=== PATIENT | female | born 1965 | race Caucasian/White ===

== ENCOUNTER 2023-12-26 07:33 | Emergency (ER) | payer OTHER, SELFPAY ==
[2023-12-26 07:37] VITALS: BP 122/77
--- NOTE | 2023-12-26 08:03 | ED.GENMED ---
History of Present Illness
General
Chief Complaint: Musculo-Skeletal Complaint
Source: patient
Exam Limitations: none
Time Seen by Provider: 12/26/23 07:54
Nursing documentation reviewed up to this point in time: agreed with
History of Present Illness
History of Present Illness:
Patient is a 58 old female who tripped over a ladder yesterday hitting her right forearm right wrist and the lateral. She also hit her left posterior thigh. She denies hitting her head. She complains of small abrasion and bruising to right
forearm and some soreness/tenderness to her left posterior thigh.
Her tetanus is up-to-date. She denies any other injury
Review of Systems
Review of Systems
Allergies reviewed?: Yes
All Other Systems: ROS reviewed and negative except as documented in HPI and ROS
Constitutional: Reports no symptoms; Denies fever, fatigue or chills
Musculoskeletal: Reports other (right forearm pain/bruising and discomfort to left thigh)
Skin: Reports no symptoms
Neurological: Reports no symptoms
Psychiatric: Reports no symptoms
Phy Exam
General Physical Exam
General Presentation: no apparent distress
General age: appears stated age
General Skin: warm and dry
General Habitus: normal
General Mental: alert
General Hydration: appears well hydrated
Neurological Exam
Neurological Exam: alert and oriented x3
Musculoskeletal Exam
Musculoskeletal Exam: other (rue with + small ecchymosis to volar forearm soft tissue tenderness small abrasion no obvious swelling to wrist no bony tenderness to wrist patient reports pain is inside.; + small abrasion school left posterior thigh
with normal inspection no ecchymosis no bony tenderness normal weightbearing)
Skin Exam
Skin Exam: normal color and warm/dry
Psychiatric Exam
Psychiatric Exam: normal mood/affect
Course
Orders/Labs/Results
Orders:
Orders
12/26/23 07:41
Forearm, Right 2 View [CR Forearm - Right 2 View] Urgent
Comment:
Reason For Exam: injury
Vital Signs
Initial and Last Documented VS:
Initial Vital Signs
Temp Pulse Resp BP Pulse Ox
99.7 F 89 16 122/77 98
12/26/23 07:37 12/26/23 07:37 12/26/23 07:37 12/26/23 07:37 12/26/23 07:37
Last Documented Vital Signs
Temp Pulse Resp BP Pulse Ox
99.7 F 89 16 122/77 98
12/26/23 07:37 12/26/23 07:37 12/26/23 07:37 12/26/23 07:37 12/26/23 07:37
MDM/Problems Addressed
Differential Diagnosis Includes:
Not limited to contusion versus fracture
MDM/Problems Addressed:
Symptoms are consistent with contusion will d/c with ice/tylenol
*Pulse Oximetry
Patient hypoxic: no
*Critical Care Note
Total Time (30-74mins, 75-104mins- exclusive of procedures): Not Applicable
ED Attending Note
-
Portions of this chart may have been created with voice recognition software.� Occasional wrong word or��sound alike� substitutions may have occurred due to the inherent limitations of voice recognition software.
Discharge Plan
Departure
Patient Disposition: Home (Routine Discharge)
Date of Disposition: 12/26/23
Time of Disposition: 08:40
Patient with high blood pressure during this ER visit?: No
Condition: Fair
Covid-19: Not Applicable
Discharge Problem:
Contusion
Instructions: Contusion (DC), Using Cold for Pain
Activity Restrictions/Additional Instructions:
There is no obvious fracture on x-ray. As discussed ice the area you may take Motrin or Tylenol. Wash small region of similar twice a day and apply small layer of antibiotic ointment to the area return if any worsening of symptoms or increased
pain swelling redness fever chills.
Interventions
Interventions:
*Risk Screen - Suicide Last Done: 12/26/23 07:37
*General Assessment Last Done: 12/26/23 07:37
*Neglect/Abuse Screening Last Done: 12/26/23 07:37
ED- Fall Risk Assessment Last Done: 12/26/23 08:40
*ED COVID-19 Vaccine History Last Done: 12/26/23 08:40
*Nursing Disposition Last Done: 12/26/23 08:40
Discharge Date and Time
Discharge Date/Time: 12/26/23 08:40
Print Language: CROATIAN
== END 2023-12-26 08:40 | disposition home or self-care (01) ==
LOC: EMR 07:33
PROVIDERS: EMERGENCY PHYSICIAN Emergency Medicine; FAMILY PHYSICIAN Family Medicine
DX: S50.11XA Contusion of right forearm, initial encounter (principal); S50.811A Abrasion of right forearm, initial encounter; W19.XXXA Unspecified fall, initial encounter
CPT/HCPCS: 99283; 73090

== ENCOUNTER 2024-01-21 17:16 | Emergency (ER) | payer OTHER, SELFPAY ==
[2024-01-21 17:22] VITALS: BP 111/67
[2024-01-21 17:45] LABS: % Basophils 0.8 % (0-2); % Immature Granulocytes 0.4 % (0-0.5); % Lymphocytes 19.5 % (20.5-51.1); % Monocytes 4.7 % (1.7-9.3); % Neutrophils 73.6 % (42.2-75.2); Absolute Basophils 0.1 10^3/uL (0-0.2); Absolute Eosinophils 0.1 10^3/uL (0-0.7); Absolute Lymphocytes 1.6 10^3/uL (1.2-3.4); Absolute Monocytes 0.4 10^3/uL (0.1-0.6); Absolute Neutrophils 6.1 10^3/uL (1.4-6.5); Hematocrit 31.3 % (37.0-47.0); Hemoglobin 10.6 g/dL (12.0-16.0); Mean Corp Hgb Conc. 33.9 g/dL (33.0-37.0); Mean Corpuscular Hgb 29.4 pg (27.0-31.0); Mean Corpuscular Volume 86.9 fL (81.0-99.0); Mean Platelet Volume 9.3 fL (7.4-10.4); Nucleated Red Blood Cells % 0 %; Platelet Count 258 10^3/uL (130-400); Red Cell Dist. Width 13.3 % (11.5-14.5); White Blood Cell Count 8.3 10^3/uL (4.8-10.8)
[2024-01-21 18:05] LABS: ALT (SGPT) 15 U/L (0-35); AST (SGOT) 27 U/L (14-36); Albumin 4.3 g/dl (3.5-5.0); Alkaline Phosphatase 64 U/L (38-126); Blood Urea Nitrogen 15 mg/dl (7-17); Calcium 9.4 mg/dl (8.4-10.2); Carbon Dioxide 26 mmol/L (22-30); Chloride 104 mmol/L (98-107); Glucose 117 mg/dl (70-99); Lipase 88 U/L (23-300); Potassium 4.4 mmol/L (3.5-5.1); Sodium 136 mmol/L (135-145); Total Bilirubin 0.4 mg/dl (0.2-1.3); Total Protein 6.8 g/dl (6.3-8.2); eGFR > 60.00
[2024-01-21 18:16] LABS: HCG, Serum Qualitative Screen Negative
--- NOTE | 2024-01-21 19:11 | ED.GENMED ---
History of Present Illness
<Jazmin Kearney MD, Resident - Last Filed: 01/21/24 22:10>
General
Chief Complaint: Abdominal Pain
Time Seen by Provider: 01/21/24 18:45
History of Present Illness
History of Present Illness:
The patient was admitted to ER with upper abdominal pain which started yesterday and gotten worse today. She started to feel nauseous and distended today. This morning she had her bowel movement and is not sure if she had any blood, mucus or color
change with stool. The patient denies any past abdominal surgery. She has denies SOB and chest pain. She has PMH of psoriasis arthritis and HLD.
If applicable-neuro sx onset
Date of onset of symptoms: 01/21/24
Past History
<Jaylon Pollard MD - Last Filed: 01/21/24 22:46>
Past History
ED Past Medical History: Hypercholesterolemia and Other (Psoriatic arthritis)
ED Past Surgical History: Orthopedic
Review of Systems
<Jazmin Kearney MD, Resident - Last Filed: 01/21/24 22:10>
Review of Systems
EENT: Reports no symptoms
Respiratory: Reports no symptoms
Cardiac: Reports no symptoms
ABD/GI: Reports pain and other (mid abdominal and RU abdominal tenderness to palpation. No rebound or guarding. )
: Reports no symptoms
Musculoskeletal: Reports no symptoms
Skin: Reports other (Patches on elbow due psoriasis )
Neurological: Reports no symptoms
<Jaylon Pollard MD - Last Filed: 01/21/24 22:46>
Review of Systems
All Other Systems: Not applicable
Constitutional: Denies fever
Phy Exam
<Jazmin Kearney MD, Resident - Last Filed: 01/21/24 22:10>
General Physical Exam
General Presentation: well appearing and no apparent distress
General age: appears stated age
General Skin: warm
General Habitus: normal
General Mental: alert
General Hydration: appears well hydrated
Eye Exam
Eye Exam: EOMI and conjunctiva normal
Cardiovascular Exam
Cardiovascular Exam: regular rate/rhythm, no edema, no gallop and no JVD
Pulmonary Exam
Pulmonary Exam: lungs clear, no respiratory distress, no rales, no crackles, no rhonchi, no stridor and no wheezing
Gastrointestinal Exam
Gastrointestinal Exam: distended, tender and other (tenderness on mid abdominal RU abdominal area to palpation. No rebound or guarding)
Palpation: right upper quadrant: Mild tenderness
Neurological Exam
Neurological Exam: alert, oriented x3, CN II-XII intact, no motor deficits and no sensory deficits
Course
<Jazmin Kearney MD, Resident - Last Filed: 01/21/24 22:10>
Orders/Labs/Results
Orders:
Orders
01/21/24 17:29
Electrocardiogram (*1) Urgent
Reason for Study: Abdominal Pain
EKG- Treatment ONCE
Test Result ONCE
01/21/24 17:41
Complete Blood Count/With Diff Urgent
Comprehensive Metabolic Panel Urgent
HCG, Serum Qualitative Screen Urgent
Lipase Urgent
01/21/24 19:09
Iohexol [Omnipaque] See Protocol PO NOW STA
01/21/24 19:10
CT Abd/pel W Iv And Oral Contr Urgent
Comment:
Reason For Exam: Upper abdominal pain/distention
0.9% Sodium Chloride 1000 ml [Nss] 1,000 ml IV BOLUS
US Abdomen Complete/Upper Urgent
Comment:
Reason For Exam: Upper abdominal pain
01/21/24 19:28
Troponin I Urgent
01/21/24 22:41
Pantoprazole [Protonix IV] 40 mg IV NOW STA
Abnormal Lab Results
01/21/24
17:41
RBC 3.60 L 10^6/uL
(4.20-5.40)
Hgb 10.6 L g/dL
(12.0-16.0)
Hct 31.3 L %
(37.0-47.0)
Lymphocytes % 19.5 L %
(20.5-51.1)
Glucose 117 H mg/dl
(70-99)
01/21/24 17:41
01/21/24 17:41
Vital Signs
Initial and Last Documented VS:
Initial Vital Signs
Temp Pulse Resp BP Pulse Ox
98.4 F 91 18 111/67 98
01/21/24 17:22 01/21/24 17:22 01/21/24 17:22 01/21/24 17:22 01/21/24 17:22
Last Documented Vital Signs
Temp Pulse Resp BP Pulse Ox
98.4 F 91 18 111/67 98
01/21/24 17:22 01/21/24 17:22 01/21/24 17:22 01/21/24 17:22 01/21/24 17:22
<Jaylon Pollard MD - Last Filed: 01/21/24 22:46>
Orders/Labs/Results
Orders:
Orders
01/21/24 17:29
Electrocardiogram (*1) Urgent
Reason for Study: Abdominal Pain
EKG- Treatment ONCE
Test Result ONCE
01/21/24 17:41
Complete Blood Count/With Diff Urgent
Comprehensive Metabolic Panel Urgent
HCG, Serum Qualitative Screen Urgent
Lipase Urgent
01/21/24 19:09
Iohexol [Omnipaque] See Protocol PO NOW STA
01/21/24 19:10
CT Abd/pel W Iv And Oral Contr Urgent
Comment:
Reason For Exam: Upper abdominal pain/distention
0.9% Sodium Chloride 1000 ml [Nss] 1,000 ml IV BOLUS
US Abdomen Complete/Upper Urgent
Comment:
Reason For Exam: Upper abdominal pain
01/21/24 19:28
Troponin I Urgent
01/21/24 22:41
Pantoprazole [Protonix IV] 40 mg IV NOW STA
Abnormal Lab Results
01/21/24
17:41
RBC 3.60 L 10^6/uL
(4.20-5.40)
Hgb 10.6 L g/dL
(12.0-16.0)
Hct 31.3 L %
(37.0-47.0)
Lymphocytes % 19.5 L %
(20.5-51.1)
Glucose 117 H mg/dl
(70-99)
01/21/24 17:41
01/21/24 17:41
Vital Signs
Initial and Last Documented VS:
Initial Vital Signs
Temp Pulse Resp BP Pulse Ox
98.4 F 91 18 111/67 98
01/21/24 17:22 01/21/24 17:22 01/21/24 17:22 01/21/24 17:22 01/21/24 17:22
Last Documented Vital Signs
Temp Pulse Resp BP Pulse Ox
98.4 F 91 18 111/67 98
01/21/24 17:22 01/21/24 17:22 01/21/24 17:22 01/21/24 17:22 01/21/24 17:22
<Jazmin Kearney MD, Resident - Last Filed: 01/21/24 22:10>
*Critical Care Note
Total Time (30-74mins, 75-104mins- exclusive of procedures): Not Applicable
<Jaylon Pollard MD - Last Filed: 01/21/24 22:46>
*Radiology
Radiology exam reviewed: radiology read reviewed (Ultrasound shows normal gallbladder some Pelvicalceal dilatation asymmetrically. CT shows symmetrical prominence of the renal pelvis no evidence of obstruction thickening of the duodenal wall.
Suggestive of duodenitis atherosclerotic changes)
*Pulse Oximetry
Patient hypoxic: no
*EKG
Interpreted by ED Provider?: Yes
Interpretation: normal
Comparison EKG: no comparison EKG present
Heart Rate: 76
Rate: normal
Rhythm: sinus
[place]: normal axis
Interval: normal interval
QRS Pattern: right bundle branch block (inc)
Ischemia: no ischemia
<Jazmin Kearney MD, Resident - Last Filed: 01/21/24 22:10>
Comment
Comment:
The patient has mild tenderness on her RU and mid abdominal area. The patient might have gallbladder problems, gastroenteritis,bowel obstruction, diverticulosis or inferior AK. EKG did not show any abnormality, troponin was ordered. Abdominal USG
was ordered to check gallbladder and CAT scan was ordered to check possible abdominal problems.
<Jaylon Pollard MD - Last Filed: 01/21/24 22:46>
Update Note
Update Note:
Patient medically stable and nontoxic. All consistent with a duodenitis. Symptoms are all upper abdomen. Nothing to support urinary issue. Protonix and follow-up.
ED Attending Note
<Jazmin Kearney MD, Resident - Last Filed: 01/21/24 22:10>
-
Portions of this chart may have been created with voice recognition software.� Occasional wrong word or��sound alike� substitutions may have occurred due to the inherent limitations of voice recognition software.
<Jaylon Pollard MD - Last Filed: 01/21/24 22:46>
ED Attending Note
Patient seen and examined by attending physician: Yes
I performed the substantive portion of visit, reviewed & personally made and approve the management plan that is documented in note by myself or RAJ.: Yes
I performed a history and physical exam of patient and discussed management with resident, I reviewed resident's note and agree with documented findings and plan of care.: Yes
ED Attending Note:
58-year-old female complaining of upper abdominal pain with nausea since yesterday. Slightly more towards the right upper quadrant. No chest pain shortness of breath. No fever at home. Bowel movement this morning was normal. Feels somewhat
bloated with this. No history of similar issues.
On exam patient is nontoxic in no distress. Stable vital signs. Lungs clear and equal. Heart regular rate and rhythm no murmur. Abdomen soft. Bowel sounds present. Mild epigastric and right upper quadrant tenderness. No rebound or guarding no
mass or hernia. Warm and dry. Perfusing well. Grossly nonfocal.
Differential would include biliary colic/cholecystitis, gastritis, colitis although no diarrhea bloody or mucousy stools. Labs are stable. Minimal anemia. Ultrasound negative. Unlikely to be a gallbladder issue. CT scan pending. If all
negative will treat as a gastritis to follow-up
Discharge Plan
Departure
Patient Disposition: Home (Routine Discharge)
Date of Disposition: 01/21/24
Time of Disposition: 22:44
Patient with high blood pressure during this ER visit?: No
Discharge Problem:
Upper abdominal pain/duodenitis
Instructions: Nausea and Vomiting, Adult (DC), Abdominal Pain
Prescriptions:
New
ondansetron 4 mg tablet,disintegrating
4 mg PO TIDPRN PRN (Reason: nausea/vomiting) Qty: 14 0RF
pantoprazole [Protonix] 40 mg tablet,delayed release (DR/EC)
40 mg PO DAILY 14 Days Qty: 14 0RF
Referrals:
Geneva Coy, DO [Family Provider] - Follow up in 2-3 days
Activity Restrictions/Additional Instructions:
Light diet
Protonix as directed. Zofran for nausea. These prescriptions were sent to your pharmacy
Follow-up closely with the CAT scan with your primary physician
Interventions
Interventions:
*Risk Screen - Suicide Last Done: 01/21/24 17:22
*General Assessment Last Done: 01/21/24 17:22
*Neglect/Abuse Screening Last Done: 01/21/24 17:22
*ED COVID-19 Vaccine History Last Done: 01/21/24 18:46
JB-[id number] Assessment Last Done: 01/21/24 19:31
Discharge Date and Time
Print Language: [place]LAND[place]
[2024-01-21] MEDS: OMNIPAQUE 50 ML PO (19:20)
[2024-01-21] MEDS: NSS 1000 IV (19:29)
[2024-01-21 20:01] LABS: Troponin I < 0.012 ng/ml
[2024-01-21] MEDS: PROTONIX IV 40 MG IV (22:48)
== END 2024-01-21 22:58 | disposition home or self-care (01) ==
LOC: EMR 17:16
PROVIDERS: Emergency Medicine; EMERGENCY PHYSICIAN Emergency Medicine; FAMILY PHYSICIAN Family Medicine
DX: K29.80 Duodenitis without bleeding (principal); R10.10 Upper abdominal pain, unspecified; R11.0 Nausea; R14.0 Abdominal distension (gaseous); I45.10 Unspecified right bundle-branch block; E78.00 Pure hypercholesterolemia, unspecified; L40.50 Arthropathic psoriasis, unspecified; Z88.0 Allergy status to penicillin; Z88.8 Allergy status to other drugs, medicaments and biological substances
CPT/HCPCS: 99285; 96361; 96374; 74177; 76700; 80053; 83690; 84484; 84703; 85025; 93005; Q9967